=== PATIENT | female | born 2005 | race Two or more races ===

== ENCOUNTER → 2025-08-25 | Outpatient (CLI) | payer MEDICAID, SELFPAY ==
--- NOTE | 2025-08-25 07:15 | XR_ITS ---
Examination: Abdomen sonogram, complete Date and time of exam: August 25, 2025, 0730 hours INDICATIONS: Upper abdominal pain months. Technique: Multiple real-time grayscale transabdominal sonographic images of the abdomen have been obtained. Findings: Normal gallbladder. Normal common bile duct 0.3 cm Pancreatic head 1.4 cm Aorta not enlarged. Liver 14.1 cm fatty infiltration Normal hepatopetal portal venous flow Patent IVC Right kidney 10.9 cm renal cortex 1.5 cm Left kidney 10.3 cm renal cortex 1.6 cm Spleen 9 cm IMPRESSION: Fatty infiltration throughout the liver, otherwise negative study
== END | disposition home or self-care (01) ==
DX: K76.0 Fatty (change of) liver, not elsewhere classified (principal)
CPT/HCPCS: 76700